=== PATIENT | male | born 1955 | race Caucasian/White ===

== ENCOUNTER 2019-02-22 15:47 | Inpatient (IN) ==
--- NOTE | 2019-02-22 16:39 | EKG Report ---
Test Performed on : 02/22/2019 4:03:23 PM Test Reason : palpitations Blood Pressure : / mmHG Vent. Rate : 140 BPM Atrial Rate : 153 BPM P-R Int : 000 ms QRS Dur : 106 ms QT Int : 340 ms P-R-T Axes : 000 -66 093 degrees QTc Int : 519 ms Atrial fibrillation. with rapid ventricular response. Incomplete right bundle branch block Left anterior fascicular block Minimal voltage criteria for LVH, may be normal variant T wave abnormality, consider lateral ischemia Abnormal ECG No previous ECGs available Unconfirmed Result
[2019-02-22 16:41] LABS: BASO# 0.02 X1000 (0.0-0.2); BASO% 0.3 % (0.0-0.8); EOS# 0.01 X1000 (0.0-0.7); EOS% 0.1 % (0.0-10.0); HEMATOCRIT 46.3 % (42.0-52.0); HEMOGLOBIN 14.9 g/dL (14.0-18.0); IMM GRAN# 0.03 X1000 (0.0-0.04); IMM GRAN% 0.4 % (0.0-0.5); LYMPH# 1.52 X1000 (1.2-3.4); LYMPH% 22.1 % (20.5-51.1); MCH 30.2 PG (27-31); MCHC 32.2 g/dL (33-37); MCV 93.7 FL (81-99); MONO# 0.78 X1000 (0.11-0.59); MONO% 11.4 % (1.7-9.3); MPV 12.6 FL (7.4-10.4); NEUT# 4.51 X1000 (1.4-6.5); NEUT% 65.7 % (42.2-75.2); PLT 106 X1000 (130-400); RBC 4.94 XMIL (4.7-6.1); RDW 13.8 % (11.5-14.5); WBC 6.87 X1000 (4.8-10.8)
[2019-02-22 16:50] LABS: INR 1.11; PROTIME 14.9 Seconds (11.0-16.0)
[2019-02-22 16:51] LABS: PTT 27.1 Seconds (22.3-41.8)
--- NOTE | 2019-02-22 16:56 | Diag Imaging Result Doc PS360 ---
EXAM: CHEST-2 VIEWS HISTORY: shortness of breath TECHNIQUE: Chest two views COMPARISON: None. FINDINGS: The lungs are well expanded. The heart is enlarged. The vessels are not distended. There are no infiltrates. No pleural effusions. There are multiple old rib fractures. IMPRESSION: Mild cardiomegaly Electronically signed by Akil Lees 02/22/2019 4:54 PM
[2019-02-22 17:10] LABS: ESTIMATED GFR > 60
[2019-02-22 17:12] LABS: ALBUMIN 3.4 g/dL (3.5-5.0); ALKALINE PHOSPHATASE 108 U/L (32-122); BUN 12 mg/dL (8-22); CALCIUM 8.5 mg/dL (8.8-10.2); CK PROFILE 117 U/L (24-204); COSMO 284; CREATININE 0.7 mg/dL (0.7-1.2); GOT 57 U/L (10-34); GPT 62 U/L (10-44); TOTAL PROTEIN 6.8 g/dL (6.3-8.3)
[2019-02-22 17:13] LABS: AGAP 12; CHLORIDE 97 mmol/L (98-107); POTASSIUM 4.8 mmol/L (3.5-5.1); SODIUM 133 mmol/L (136-145); TCO2 25 mmol/L (25-35)
[2019-02-22 17:15] LABS: GLUCOSE 427 mg/dL (70-104)
[2019-02-22 17:43] LABS: BE -7.7 mmoll (-2.0-2.0); BLOOD TYPE VENOUS; HCO3-(ACT) 18.3 mmoll (22-27); PO2(98.6) 51 mmHg (30-55); SAMPLE BLOOD; SAO2 83.4 % (40.0-85.0)
[2019-02-22 17:46] LABS: pH(98.6) 7.14 (7.32-7.43)
[2019-02-22 17:47] LABS: PCO2(98.6) 67 mmHg (40-60)
[2019-02-22] MEDS ORDERED: HUMULIN R SUBQ ONE (18:31)
[2019-02-22] MEDS ORDERED: LASIX IV ONE (18:38)
[2019-02-22] MEDS ORDERED: LANOXIN IV ONE (18:38)
[2019-02-22] MEDS ORDERED: HUMULIN R (PARKWAY) ONE (18:46)
--- NOTE | 2019-02-22 19:01 | PROVIDER DOCUMENTATION ---
This chart was entered by Geeta Jean Baptiste Scribe, acting as scribe for Jasiel Ford MD. HPI-Cardiac General - General Chief Complaint: Shortness of Breath Stated Complaint: AFIB / EDEMA Time Seen by Provider: 02/22/19 16:17 Source: patient Allergies/Adverse Reactions: Patient Allergies Allergy/AdvReac Type Severity Reaction Status Date / Time Penicillins Allergy Unknown Verified 02/22/19 15:58 Sulfa (Sulfonamide Allergy Unknown Verified 02/22/19 15:58 Antibiotics) Home Medications: Home Medication List Medication Instructions Recorded Confirmed Last Taken Type Ubidecarenone [Ultra Coq10] 1 tab PO DAILY 02/22/19 02/22/19 Unknown History - History of Present Illness-Cardiac Nature of Presenting Problem: 63yom presents to ED cc swelling of both legs from groin to feet, SOB, fatigue especially with walking, increased thirst and hesitancy in urinating for last 2 weeks. Pt denies chest pain or fever. Pt has hx of Afib. Pt is in no apparent distress upon exam. Location: reports: other (both legs) Quality of Pain: reports: aching Severity in ED: mild Onset/Duration: last week Timing: still present Context/Activities at Onset: reports: moderate activity Modifying Factors: worse with: movement Palpitation Quality: irregular History of arrythmia: reports: A-Fib Nitro Today/Relief: reports: no nitro taken today Aspirin Treatment Today: reports: no aspirin today Similar Symptoms Previously?: No Recently Seen Here or By Another Healthcare Provider: No Review of Systems - Adult - REVIEW OF SYSTEMS - ADULT Constitutional: reports: see HPI, fatique. denies: chills, fever Eyes: reports: no symptoms reported Ears, Nose, Mouth & Throat: reports: no symptoms reported Cardiovascular: reports: see HPI, irregular heart rate. denies: chest pain Respiratory: reports: see HPI, shortness of breath. denies: cough Gastrointestinal: reports: no symptoms reported Genitourinary: reports: see HPI, hesitency Musculoskeletal: reports: no symptoms reported Integumentary: reports: see HPI, other (swelling both legs) Neurological: reports: no symptoms reported Psychiatric: reports: no symptoms reported Endocrine: reports: see HPI, increased thirst Hematologic/Lymphatic: reports: no symptoms reported Allergic/Immunologic: reports: no symptoms reported All Other Systems: Reviewed and Negative Past History - Adult - PAST MEDICAL HISTORY-ADULT Review of Records: reports: Nursing Assessment Review, Medications Reviewed, Social history reviewed & non-contributory. Major Childhood Illnesses: reports: denies history Cardiovascular: reports: denies history Respiratory: reports: denies history Gastrointestinal: reports: denies history Obstetrical/Gynecological: reports: denies history Genitourinary: reports: denies history Musculoskeletal: reports: denies history Neurological: reports: denies history Endocrine/Immune: reports: denies history Other Conditions: reports: denies history - IMMUNIZATION STATUS Childhood Immunizations: See Nurse Assessment Flu Vaccine: See Nurse Assessment - FAMILY HISTORY Family History: reviewed, not pertinent Physical Exam-General - PHYSICAL EXAM-ADULT Initial Vital Signs Reviewed: Yes - CONSTITUTIONAL General Appearance: appears well, alert, no apparent distress. negative: anxious, combative - EYES Eyes: PERRL/EOMI, pink conjunctivae. negative: photophobia - HEAD, EARS, NOSE, MOUTH & THROAT HENMT: normocephalic/atraumatic, moist mucous membranes. negative: angioedema - NECK Neck: non-tender, full range of motion, supple, normal inspection. negative: C- spine tenderness - RESPIRATORY Respiratory: chest non-tender, lungs clear, normal breath sounds. negative: whe ezing - CARDIOVASCULAR Cardiovascular: normal peripheral pulses, tachycardia. negative: regular rate, rhythm, bradycardia - GASTROINTESTINAL (ABDOMEN) Abdominal Exam: normal bowel sounds, non tender, soft. negative: rebound - MUSCULOSKELETAL Extremity: pedal edema (bilateral), swelling (both legs from groin to feet). negative: deformity - SKIN Integumentary: normal color. 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 negative: facial droop, focal weakness, motor weakness, sensory deficit - PSYCHIATRIC Psych/Mental Status: normal mood/affect, oriented x 3. negative: anxious, disheveled - HEART Score HEART Score: History: Slightly Suspicious HEART Score: ECG: Non-Specific Repolarization Disturbance/LBBB/PM HEART Score: Age: 45-65 Years HEART Score: Risk Factors for Atherosclerotic Disease: 1 or 2 Risk Factors HEART Score: Troponin: < or = Normal Limit Total HEART Score:: 3 Progress - PLAN OF CARE/RESULTS Progress/Plan/Lab Results: Vital Signs - 8 hr 02/22/19 15:52 02/22/19 17:04 02/22/19 18:54 Temperature 98.5 F Pulse Rate 129 H 138 H 136 H Respiratory Rate 20 20 Blood Pressure 117/83 109/83 O2 Sat by Pulse Oximetry 98 98 Laboratory Results - last 24 hr 02/22/19 02/22/19 02/22/19 16:18 16:18 16:18 WBC 6.87 RBC 4.94 Hgb 14.9 Hct 46.3 MCV 93.7 MCH 30.2 MCHC 32.2 L RDW Std Deviation 13.8 Plt Count 106 L MPV 12.6 H Immature Gran % (Auto) 0.4 Neut % (Auto) 65.7 Lymph % (Auto) 22.1 [place] % (Auto) 11.4 H Eos % (Auto) 0.1 Baso % (Auto) 0.3 Immature Gran # (Auto) 0.03 Neut # (Auto) 4.51 Lymph # (Auto) 1.52 [place] # (Auto) 0.78 H Eos # (Auto) 0.01 Baso # (Auto) 0.02 PT INR PTT (Actin FS) Specimen Type VBG pH VBG pCO2 VBG pO2 VBG HCO3 VBG O2 Saturation VBG Base Excess Sodium 133 L Potassium 4.8 Chloride 97 L Carbon Dioxide 25 Anion Gap 12 BUN 12 Creatinine 0.7 Estimated GFR/1.73 m2 > 60 BUN/Creatinine Ratio 17 Glucose 427 H* Calculated Osmolality 284 Calcium 8.5 L Total Bilirubin 1.30 H AST 57 H ALT 62 H Alkaline Phosphatase 108 Creatine Kinase 117 Troponin T Wob-[id number]-Tauqedflchq Pept 4244 H Total Protein 6.8 Albumin 3.4 L Globulin 3.0 Albumin/Globulin Ratio 1.0 02/22/19 02/22/19 02/22/19 16:18 16:18 17:25 WBC RBC Hgb Hct MCV MCH MCHC RDW Std Deviation Plt Count MPV Immature Gran % (Auto) Neut % (Auto) Lymph % (Auto) [place] % (Auto) Eos % (Auto) Baso % (Auto) Immature Gran # (Auto) Neut # (Auto) Lymph # (Auto) [place] # (Auto) Eos # (Auto) Baso # (Auto) PT 14.9 INR 1.11 PTT (Actin FS) 27.1 Specimen Type VENOUS VBG pH 7.14 L* VBG pCO2 67 H* VBG pO2 51 VBG HCO3 18.3 L VBG O2 Saturation 83.4 VBG Base Excess -7.7 L Sodium Potassium Chloride Carbon Dioxide Anion Gap BUN Creatinine Estimated GFR/1.73 m2 BUN/Creatinine Ratio Glucose Calculated Osmolality Calcium Total Bilirubin AST ALT Alkaline Phosphatase Creatine Kinase Troponin T < 0.010 Esh-[id number]-Oogawbqvdpn Pept Total Protein Albumin Globulin Albumin/Globulin Ratio Orders Category Date Time Status Cardiac Monitoring DIRECTED Care 02/22/19 16:01 Active Oxygen Therapy- ED Nursing DIRECTED Care 02/22/19 16:01 Active Saline Loc NOW Care 02/22/19 16:01 Active CHEST-2 VIEWS [RAD] Stat Exams 02/22/19 16:01 Completed CBC WITH ELECTRONIC DIFF [HEME] Stat Lab 02/22/19 16:18 Completed CK PROFILE [SP CHEM] Stat Lab 02/22/19 16:18 Completed COMPREHENSIVE METABOLIC PANEL [CHEM] Stat Lab 02/22/19 16:18 Completed PRO B-NATRIURETIC PEPTIDE Stat Lab 02/22/19 16:18 Completed PROTIME WITH INR [COAG] Stat Lab 02/22/19 16:18 Completed PTT [COAG] Stat Lab 02/22/19 16:18 Completed TROPONIN T Stat Lab 02/22/19 16:[address] BLOOD G[address] [RESP] Routine Lab 02/22/19 17:25 Completed Digoxin [Lanoxin] Med 02/22/19 18:38 Discontinued 125 microgm IV NOW ONE Furosemide [Lasix] Med 02/22/19 18:38 Discontinued 40 mg IV NOW ONE Insulin Human Regular ([place] [Humulin R ([place])] Med 02/22/19 18:46 Discontinued 3 units .ROUTE .STK-MED ONE Insulin Human Regular [Humulin R] Med 02/22/19 18:31 Discontinued 3 unit SUBQ NOW ONE CP/SOB/Palp >45 yrs of Age Stat Oth 02/22/19 16:01 Ordered EKG [EKG] Stat Ther 02/22/19 15:59 Draft Transfer/Admit Order [TRANSFER] Routine Transfer 02/22/19 18:48 Ordered Result Diagrams: 02/22/19 16:18 02/22/19 16:18 - REASSESSMENT Reassessment #1 Time Reassessed: 18:29 Status: unchanged (Ph 7.14, BS 427. LIKELY COMPONENT DKA. A FIB AT 125-135/MIN BUT BP 109-122/ AND PT FLUID OVERLOADED WITH CARDIIOMEGALLY AND EDEMA UP TO GENITATLIA) Reassessment #2 Time Reassessed: 18:30 Status: unchanged (PAGING DR PINEDO. DISCUSSED WITH DR FRANKLIN: START DIGOXIN 0.125IV, LASIX IV, TRANSFER TO ICU AT [facility].) - EKG 1 Time of EKG reading by physician:: 16:18 EKG Read and Signed by:: Jasiel Ford EKG Interpretation (*Must complete 3 of following elements*): Abnormal (left anterior fascicular block T wave abnormality consider lateral ischemia) Rate: 140 Rhythm: atrial fibrillation with RVR QRS: RBB (incomplete), LVH WV Interval: normal - XRAY 1 XRAY: Bilateral XRAY Study: Chest Impression: See EMR Report (IMPRESSION: Mild cardiomegaly Electronically signed by Akil Lees 02/22/2019 4:54 PM) Departure - Departure Date of Disposition Decision: 02/22/19 Time of Disposition Decision: 18:40 DIAGNOSIS: Chronic atrial fibrillation with RVR, DKA, type 2, Cardiomegaly, Fluid overload , Hyperglycemia, New onset type 2 diabetes mellitus Disposition: ADMITTED INPATIENT 09 Certified Medical Emergency: Emergent Condition: Stable Additional Freetext Instructions: ED Follow Up Instructions: You have been treated by a care provider in the Emergency Department. These instructions are being provided to you so you can have an understanding of how to care for yourself upon discharge. Upon discharge from the Emergency Department, you are responsible for making arrangements for follow-up care by a physician of your choice. Take all prescribed medications as directed. Return to the Emergency Department immediately for any new or worsening symptoms. You may call the Physician Referral phone number at [phone] to obtain a list of Physicians who are taking new patients. Referrals and Follow-Ups: None,PCP [Primary Care Provider] - - Critical Care Note This patient required my direct & personal management of CC.: Yes Total Time (mins): 44 Critical Care Statement: This patient required my direct personal management to treat or rule out processes, the absence of which, could potentiallly result in sudden, clinically significant life or limb threatening deterioration. Attestation - Physician/ TUAN Attestation Patient care was provided by Advanced Practice Provider:: No The physician spent face to face time with patient:: Yes Advanced Practice Provider documentation review:: Supervising physician onsite and consulted in the evaluation and care of this patient. The physician did have a face to face encounter with the patient. This chart was documented by the indicated scribe, (Geeta Jean Baptiste, Franci) and accurately reflects the services I performed and decisions made by me, Jasiel Ford MD, as attested by the provider's signature.
[2019-02-22] MEDS ORDERED: CARDIZEM IV ONE ×2 (19:35→20:24)
[2019-02-22 22:40] LABS: BE 4.7 mmoll (-3.0-3.0); BLOOD TYPE ARTERIAL; HCO3-(ACT) 28.5 mmoll (20.0-26.0); METHB 1.5 % (0.0-1.5); O2(CT) 20.3 mL/dL (15.0-23.0); O2HB 94.1 % (95.0-99.0); PCO2(98.6) 29 mmHg (35-45); PO2(98.6) 82 mmHg (60-100); SAMPLE BLOOD; SAO2 98.2 % (95.0-100.0); THB 15.3 g/dL (11.5-17.4)
[2019-02-22 22:41] LABS: ALLEN TEST YES
[2019-02-22 22:42] LABS: MODALITY ROOM AIR; pH(98.6) 7.56 (7.35-7.45)
[2019-02-22 23:20] LABS: HEMOGLOBIN A1C 12.7 % (4.8-6.0)
[2019-02-22 23:30] LABS: AGAP 12; BUN 13 mg/dL (8-22); CALCIUM 8.6 mg/dL (8.8-10.2); CHLORIDE 104 mmol/L (98-107); COSMO 284; CREATININE 0.8 mg/dL (0.7-1.2); ESTIMATED GFR > 60; GLUCOSE 114 mg/dL (70-104); MAGNESIUM 1.7 mg/dL (1.5-2.7); PHOSPHORUS 3.7 mg/dL (2.7-4.5); POTASSIUM 3.6 mmol/L (3.5-5.1); SODIUM 142 mmol/L (136-145); TCO2 26 mmol/L (25-35)
[2019-02-23] MEDS ORDERED: ZOFRAN IV PRN (02:00)
[2019-02-23] MEDS ORDERED: TYLENOL PO PRN (02:07)
[2019-02-23 05:11] LABS: ALLEN TEST YES; BE 3.7 mmoll (-3.0-3.0); BLOOD TYPE ARTERIAL; HCO3-(ACT) 27.7 mmoll (20.0-26.0); METHB 1.1 % (0.0-1.5); MODALITY ROOM AIR; O2HB 93.5 % (95.0-99.0); PCO2(98.6) 34 mmHg (35-45); PO2(98.6) 71 mmHg (60-100); SAMPLE BLOOD; SAO2 97.3 % (95.0-100.0); THB 15.2 g/dL (11.5-17.4)
[2019-02-23 05:26] LABS: BASO# 0.02 X1000 (0.0-0.2); BASO% 0.4 % (0.0-0.8); EOS# 0.07 X1000 (0.0-0.7); EOS% 1.2 % (0.0-10.0); HEMATOCRIT 44.6 % (42.0-52.0); HEMOGLOBIN 15.2 g/dL (14.0-18.0); IMM GRAN# 0.02 X1000 (0.0-0.04); IMM GRAN% 0.4 % (0.0-0.5); LYMPH# 1.99 X1000 (1.2-3.4); LYMPH% 35.3 % (20.5-51.1); MCH 31.4 PG (27-31); MCHC 34.1 g/dL (33-37); MCV 92.1 FL (81-99); MONO# 0.64 X1000 (0.11-0.59); MONO% 11.4 % (1.7-9.3); MPV 12.6 FL (7.4-10.4); NEUT# 2.89 X1000 (1.4-6.5); NEUT% 51.3 % (42.2-75.2); PLT 90 X1000 (130-400); RBC 4.84 XMIL (4.7-6.1); RDW 13.8 % (11.5-14.5); WBC 5.63 X1000 (4.8-10.8)
[2019-02-23 05:45] LABS: AGAP 11; ALB/GLOB RATIO 0.9; ALBUMIN 2.8 g/dL (3.5-5.0); ALKALINE PHOSPHATASE 73 U/L (32-122); BUN 13 mg/dL (8-22); CALCIUM 8.5 mg/dL (8.8-10.2); CHLORIDE 102 mmol/L (98-107); CK PROFILE 65 U/L (24-204); COSMO 282; CREATININE 0.8 mg/dL (0.7-1.2); ESTIMATED GFR > 60; GLUCOSE 142 mg/dL (70-104); GOT 56 U/L (10-34); GPT 52 U/L (10-44); MAGNESIUM 1.6 mg/dL (1.5-2.7); SODIUM 140 mmol/L (136-145); TCO2 27 mmol/L (25-35); TOTAL BILIRUBIN 1.28 mg/dL (0.20-1.00)
[2019-02-23 06:26] LABS: URINE SOURCE CLEAN CATCH
[2019-02-23] MEDS: HUMULIN R SUBQ SCH ×4 (06:28→21:04)
[2019-02-23 06:33] LABS: URINE RBC <10 /HPF (<10); URINE WBC >40 /HPF (<10)
[2019-02-23 06:34] LABS: BILIRUBIN URINE NEGATIVE (NEGATIVE); COLOR YELLOW; GLUCOSE URINE NEGATIVE (NEGATIVE); KETONE URINE NEGATIVE (NEGATIVE); TURBIDITY URINE HAZY (CLEAR); UR EPITHELIAL CELLS <10 /HPF (<10); URINE BACTERIA 2+ /HPF
[2019-02-23 06:35] LABS: BLOOD URINE TRACE (NEGATIVE); LEUKOCYTES URINE LARGE (NEGATIVE); NITRITE URINE NEGATIVE (NEGATIVE); PROTEIN URINE 20 mg/dL (NEGATIVE); SP GRAVITY URINE 1.015; UROBILINOGEN URINE NORMAL (NORMAL)
--- NOTE | 2019-02-23 06:37 | HISTORY AND PHYSICAL ---
PRIMARY CARE PROVIDER: The patient does not have a primary care provider. DATE AND TIME: 02/23/2019 at 0015. CHIEF COMPLAINT: Bilateral lower extremity swelling. HISTORY OF PRESENT ILLNESS: Mr. Gupta is a 63-year-old male who reportedly has a past medical history of atrial fibrillation and heart failure. The patient states that he was diagnosed with this when he lived in [place]. This was approximately 2 years ago. He states he was discharged with medications. He took them for approximately a year, though for the last year he has not taken any prescribed medications or seen a physician. The patient states he takes over- the-counter Co Q10 and regularly uses apple cider vinegar. He does report daily alcohol use of a minimum of 1 beer daily, though frequently drinks up to 4 to 5 beers a day. He denies any history of having withdrawal symptoms in the past of feeling anxious, agitated or shaky when he goes for periods without alcohol. The patient reports that he has a job where he stands on his feet a lot, and does frequently have bilateral lower extremity swelling that worsens throughout the day and gets better when he lays down to sleep at night. He states he regularly does elevate his feet up as well to help with this. He states for the past 3 weeks that he has had worsening bilateral lower extremity edema that has extended all the way up his legs into his thighs. He also has scrotal and penile swelling and edema noted too. His legs seem to be equally swollen though his left foot is slightly more swollen than the right though they are not erythematous. They are not warm or tender to the touch. The patient had negative Homans' sign on both bilateral lower extremities. He did not have any localized tenderness in the deep venous system on either leg. The patient denies any headache, dizziness or feeling lightheaded. He denies any chest pain, shortness of breath, or cough. He denies any abdominal pain, nausea, vomiting, or diarrhea. He denies any fever, body aches, or chills. He also denies any palpitations. He denies any urinary symptoms. He states that he is not having trouble urinating. He does not feel like he has urinary retention either. He reports no pain or burning with urination though he did express that he would like to have a circumcision performed. The patient did present to the ER at [facility] for evaluation of his bilateral lower extremity swelling. He was noted to be hyperglycemic with a serum glucose of 427. His proBNP was elevated at 4244 though cardiac enzymes were negative. They did initially perform a venous blood gas which showed a pH of 7.14. Given this and his hyperglycemia, the patient was initially thought to be in DKA though upon repeating an arterial blood gas, the patient's pH was 7.56, pCO2 29, PO2 was 82, HC03 was 28.5, with a base excess of 4.7, and O2 saturation of 98.2. These were drawn on room air. His repeat chemistries revealed that he did have a positive response to the insulin that was given with a glucose of 114. All of his electrolytes were within normal limits. His serum bicarb was 26. His anion gap was 12. The patient was noted to be in atrial fibrillation. He did receive a dose of digoxin and Cardizem in the ER at [place]. Since that time, his heart rate is maintained in the 90s to low 100s. He is asymptomatic at this time. Blood pressure is within normal limits as well. The patient has been admitted to the ICU at [facility] for further treatment and evaluation. REVIEW OF SYSTEMS: A 14 point review of systems was conducted with the patient, and all were negative except for pertinent positives mentioned above in HPI. PAST MEDICAL HISTORY: 1. Atrial fibrillation. 2. Congestive heart failure. 3. History of right femur fracture. 4. Alcohol dependency. PAST SURGICAL HISTORY: Right upper leg surgery for repair of his femur fracture. 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 He is a former smoker. He did smoke a half a pack of cigarettes since he was a teenager though quit smoking 8 months ago. He does report at least a minimum of 1 beer a day. Alcohol use: He does frequently drink up to 4 to 5 beers a day. He has done this for several years. FAMILY HISTORY: Positive for his mother having a history of what sounds to be a DVT after surgery which unfortunately did have a subsequent PE, and did pass away secondary to this. His father is still living. He is 94 though does have a history of alcohol abuse. ALLERGIES: Patient has allergies to penicillin and sulfa. HOME MEDICATIONS: Ultra Co Q10 1 tablet p.o. daily. DIAGNOSTIC DATA/LABORATORY RESULTS: White blood cell count of 6870, hemoglobin 14.9, hematocrit 46.3, and platelet count is 106,000. PT 14.9, INR 1.11, PTT is 27.1. Sodium 133, potassium 4.8, chloride 97, serum bicarb 25, anion gap 12, BUN 12, creatinine 0.7 and GFR greater than 60. Glucose is 427. Hemoglobin A1c was 12.7. Calcium 8.5. Total bilirubin is 1.3. AST 57, ALT 62, and alkaline phosphatase is 108, and CK is 117. Troponin is less than 0.01. ProBNP is 4244. As previously mentioned upon the patient's repeat chemistries, electrolytes were within normal limits except for his calcium was slightly low at 8.6. His serum bicarb was 26, anion gap was 12. Repeat pH revealed that he was actually alkalotic, not acidotic. The patient was deemed to not be in DKA. EKG showed atrial fibrillation with a rapid ventricular response at a rate of 140 with a QTc of 519. Since that time, the patient has been given digoxin and Cardizem, and his rate is now maintaining in the 90s. Chest x-ray showed mild cardiomegaly though the lungs were well expanded. The heart was slightly enlarged. The vessels were not distended. There was no infiltrates or pleural effusions noted. PHYSICAL EXAMINATION: VITAL SIGNS: Temperature 97.7 degrees, heart rate 106, respirations 18, blood pressure 98/51 with a MAP of 58. His blood pressure has since improved as well. Oxygen saturation is 96% on room air. GENERAL: Mr. Gupta is a very pleasant 63-year-old male who was resting in the inpatient stretcher. He was in no acute distress. He was awake, alert and able to answer questions appropriately. HEENT: Head is atraumatic, normocephalic. Pupils are equal, round, and reactive to light, and were 3 mm bilaterally and brisk. Oral mucosa was moist. Oropharynx was clear. NECK: Supple. Trachea midline. No JVD noted upon examination. CARDIOVASCULAR: Patient has S1-S2 present. No murmurs. No murmurs, gallops, or rubs appreciated. Regular rate and rhythm. PULMONARY: Patient has symmetrical chest expansion bilaterally. Lung sounds are clear to auscultation in bilateral full suggs. ABDOMEN: Soft, nontender, and nondistended. Bowel sounds present in all 4 quadrants, and were normoactive. EXTREMITIES: No cyanosis noted. The patient does have edema noted from bilateral feet extending all the way up to his groin area which extends even into his scrotal and penile area. This is approximately 2+ pitting edema. The patient's legs are equally swollen except for his left foot is slightly more swollen than his right. There is no erythema warmth, or tenderness present. He had a negative Homans' sign. There was no localized tenderness in the deep venous system upon palpation. Pulse, motor and sensory is intact in all extremities. Radial and pedal pulses are 2+ bilaterally. INTEGUMENTARY: The patient's skin is pink, warm, and dry. GENITOURINARY: The patient does have some slight erythema and edema noted to his scrotal and penile area. The patient is uncircumcised. His foreskin is pulled forward though he is unable to retract this back. ICU nurse, Shira CASTILLO, was present at bedside with me during the genitourinary portion of his examination. INTEGUMENTARY: The patient's skin is warm and dry. NEUROLOGICAL: Patient is alert and oriented to person, place, time, and situation. He is able to move all extremities. There are no focal neurological deficits noted. ASSESSMENT AND PLAN: 1. Bilateral lower extremity edema. This is of uncertain etiology at this time. The patient does have a history of heart failure. We are evaluating him for this as well as he does have a history of alcohol abuse. His liver enzymes were elevated. He does have thrombocytopenia. The patient is not reporting any problems urinating at this time though given his scrotal and penile swelling, we are going to obtain a urology consult as well. Since receiving a dose of Lasix, the patient's swelling has slightly improved. We will continue to follow. 2. Possible heart failure. The patient states he does have a history of this as well as atrial fibrillation, though he has not taken medications for this for over a year. Though he does have bilateral lower extremity edema and some mild cardiomegaly noted on his chest x-ray, he is not reporting any shortness of breath or chest pain at this time. We will continue with the series of cardiac enzymes. We will repeat EKG in the morning. We also ordered an echocardiogram. He did receive 1 dose of 40 mg of Lasix IV, and since that time has had urine output of 1375 mL. We have placed a consult with Cardiology, and we will await their evaluation and further recommendations for management. 3. Penile and scrotal swelling and erythema. For the evaluation of this, we have placed a consult with Urology with Dr. Escamilla. We will await his evaluation and further recommendations for management. 4. History of alcohol dependency/abuse. The patient reports that he does drink daily minimum of beer, and up to 4 to 5 beers on a frequent basis. He has done this for several years. The patient is having some edema. He does have elevated liver function tests and does have thrombocytopenia. We are going to go ahead and order hepatitis profile, and do an abdominal ultrasound. We will closely monitor him for any signs of withdrawal. 5. Atrial fibrillation. The patient does report he has a history of this though has not taken medicine as previously mentioned in over a year. He is not reporting any chest pain or palpitations. He did come in with EKG that was noted to be in atrial fibrillation with RVR at a rate of 140. He received 125 mcg of digoxin, and a dose of 5 mg of Cardizem IV. Since that time, his rate has been controlled in the 90s. We have placed a consult with Cardiology. We will await their evaluation, and further recommendations for management. 6. New onset diabetes mellitus. The patient did present with a glucose of 427. He has a hemoglobin of 12.7. He has been placed on regular insulin per low-dose sliding scale. We will do pattern fingerstick blood sugars. The patient will be on a diabetic and heart healthy diet though he is NPO at this time for a lipid profile and abdominal ultrasound this morning. 7. Deep vein thrombosis prophylaxis will be provided with sequential compression devices. The patient has been placed in ICU for close monitoring. He will have vital signs per ICU protocol. We will do strict intake and output, incentive spirometry. He will perform daily weigh checks. We will perform a CBC, CMP, magnesium, TSH, lipid profile, urinalysis, and a series of cardiac enzymes in the morning. Further orders and recommendations pending hospital course, diagnostic studies, and physician evaluation. Dictated by NATALIA Marshall for Stefan Montgomery MD I have performed a face to face diagnostic evaluation. Labs/ Xrays- reviewed. Exam- chest - rales, Ext- +2 edema. A/P- Bilateral LE edema, suspected CHF- Admit, diuresis, Echo. Dr. Montgomery cc: Stefan Montgomery MD [facility]
--- NOTE | 2019-02-23 07:31 | EKG Report ---
Test Performed on : 02/23/2019 06:55:48 AM Test Reason : CHF,A-Fib Blood Pressure : / mmHG Vent. Rate : 094 BPM Atrial Rate : 300 BPM P-R Int : 000 ms QRS Dur : 106 ms QT Int : 402 ms P-R-T Axes : 000 -68 269 degrees QTc Int : 502 ms Atrial fibrillation. with premature ventricular or aberrantly conducted complexes. Incomplete right bundle branch block Left anterior fascicular block T wave abnormality, consider lateral ischemia Prolonged QT Abnormal ECG When compared with ECG of 22-FEB-2019 16:03, (Unconfirmed) Vent. rate has decreased BY 46 BPM Nonspecific T wave abnormality now evident in Inferior leads Confirmed by Porsche Mora MD ([id number]) on 02/23/2019 12:11:18 PM
[2019-02-23] MEDS: LOTRISONE CREAM TOP SCH ×2 (08:23→21:04)
--- NOTE | 2019-02-23 08:33 | CONSULTATION ---
DATE OF CONSULTATION: 02/23/2019 CHIEF COMPLAINT: Penile swelling. HISTORY OF PRESENT ILLNESS: Mr. Gupta is a 63-year-old male with past medical history of atrial fibrillation and heart failure who presents to the emergency room complaining of lower extremity swelling and penile swelling. The patient states the swelling has been present off and on for the past several months. He feels like it is getting worse and he felt like there was some redness and cystic changes to his penis. The patient was told previously that he had heart failure and was taking medications for about a year but then ultimately stopped. The patient states that he is having some burning with urination and feels that his urine sprays. He states that there was a tight band of the penis that leads to pain with intercourse which he feels is getting worse. He denies hematuria, urgency, or frequency. He does get up at night several times to urinate and denies taking any medications for this. While in the emergency room, the patient was evaluated for his lower extremity edema and was found to be hyperglycemic with a glucose of 427, hemoglobin A1c of 12, with a proBNP at 4244, as well as a blood gas pH 7.14. This was repeated and was 7.56 with a pCO2 of 29 and a PO2 of 82. The patient was given some Lasix, which helped with the lower extremity swelling. The patient continued to describe some pain in the penis, especially when he urinates and he feels that his urine stream sprays. PAST MEDICAL HISTORY: 1. Atrial fibrillation. 2. Congestive heart failure. 3. History of right femur fracture. 4. Alcohol dependence. 5. Newly diagnosed diabetes mellitus PAST SURGICAL HISTORY: Right upper leg surgery at age 15. ALLERGIES: Penicillin and sulfa. HOME MEDICATION: Ultra CoQ-10 1 tablet daily. FAMILY HISTORY: Denies family history of malignancy. SOCIAL HISTORY: Positive for alcohol dependence and tobacco use. Denies current illicit drugs. REVIEW OF SYSTEMS: Twelve-point review of systems performed. All pertinent positives and negatives in HPI. PHYSICAL EXAMINATION: Vital Signs: Heart rate 105, blood pressure 122/73, oxygen saturation 94% on room air, temperature 98.0 degrees, General: No acute distress. Resting comfortably in bed, alert and oriented x3. Respiratory: Good respiratory effort without audible wheezing or rales. HEENT: Normocephalic, atraumatic. Pupils equal, round, reactive to light. Mucous membranes moist with good dentition. Cardiovascular: Irregular rhythm with evidence of low-grade tachycardia. No evidence of lower extremity edema. Abdomen: Soft, nontender, nondistended. No palpable masses or hepatosplenomegaly. : No suprapubic tenderness. No suprapubic swelling. No palpable inguinal hernias. Mild bilateral scrotal edema. Bilateral testicles palpated without nodules or lesions. Epididymis are palpated with no obvious cysts. The patient is uncircumcised with penile edema. There is some increased edema present of the foreskin. I was able to retract the foreskin with a moderate tightness to the phimotic ring. I was able to retract it to the glans, which was appeared to be normal with a normal meatus. There was slight erythema present of the foreskin, but no other lesions were seen. JENNIFER: Showed 40 to 50 gram prostate without asymmetry or nodularity. No palpable rectal masses. Neurologic: Gross motor and sensory intact. Musculoskeletal: Moving all extremities. Skin: No obvious skin lesions or rashes. LABS: White blood cell count 5.6, hemoglobin 15.2, hematocrit 44.6, platelets 90,000. Sodium 140, potassium 4.0, chloride 102, bicarb 27, BUN 13, creatinine 0.6, glucose 142, total bilirubin 128, AST 56, ALT 52. ProBNP 4244. Urinalysis shows trace blood, large amount of leukocytes and white blood cells with 2+ bacteria. ASSESSMENT/PLAN: Mr. Gupta is a 63-year-old who presents in consultation regarding penile edema. The patient had admission due to his lower extremity edema and penile edema. He states this has been present off and on for for the past several months. On exam, patient does have some edematous changes of the foreskin as well as some erythematous changes to the skin itself. This appears to be possible balanitis. The patient was admitted for CHF exacerbation, which I think that the patient is having. The patient was relatively healthy other than atrial fibrillation, CHF, and alcohol dependence prior to this admission. Patient was found to have an elevated blood sugar and was tentatively diagnosed with diabetes and liver dysfunction. Recommended application of clotrimazole and betamethasone cream to the penis to help with possible balanitis. The patient is interested in undergoing circumcision and I think it is reasonable in the future. We will plan to follow up outpatient to consider a circumcision. We will hold off on starting Flomax as he is having voiding discomfort with nocturia and frequent urination throughout the day. I think the patient likely has BPH as his prostate is enlarged on exam today. If his blood pressures remained stable, after diuresis with Lasix, we could consider starting Flomax prior to discharged. I recommended he to continue to apply cream to the foreskin b.i.d. for at least 2 weeks and then we will re-evaluate. We will continue to monitor from a urologic standpoint. Please call with questions or concerns. cc: Marvin Escamilla MD MTDD
[2019-02-23] MEDS: ROCEPHIN 1 GM in NS 50 ML IV SCH (08:41)
[2019-02-23] MEDS: CARDIZEM PO SCH ×2 (08:41→13:42)
[2019-02-23] MEDS: LASIX IV SCH ×2 (08:42→21:04)
--- NOTE | 2019-02-23 13:11 | ECHO REPORT ---
ORDER DATE: 02/23/2019 INTERPRETING PHYSICIAN: Boubacar Willard MD. ECHOCARDIOGRAPHIC MEASUREMENTS: 1. Interventricular septum 1.3. 2. Left ventricular posterior wall 0.9. 3. Diastolic diameter 7.1. 4. Left atrium 4.7. 5. Aorta 3.7. FINDINGS: 1. Aortic valve leaflets were trileaflet, mildly sclerosed, opening normally. Pulmonic valve was normal. Mitral valve was normal. Tricuspid valve was normal. There is biatrial enlargement, severe. 2. Dilated right ventricle with reduced right ventricular systolic function. 3. There is mild tricuspid regurgitation. Peak velocity across the tricuspid valve was 2.5 m/sec. Pulmonary artery systolic pressure of 35 to 40 mmHg. There is moderate mitral regurgitation. 4. Atrial fibrillation is noted. Peak velocity across the aortic valve less than 2 m/sec. There is no aortic stenosis or regurgitation. 5. Left ventricle was severely dilated with severely reduced systolic function. Estimated ejection fraction of 15%. 6. There is no pericardial effusion or obvious intracardiac mass or thrombus seen. cc: Boubacar Willard MD
--- NOTE | 2019-02-23 13:33 | Diag Imaging Result Doc PS360 ---
EXAM: US ABDOMEN-COMPLETE 02/23/2019 HISTORY: Elevated LFTs,Hx of Alcohol Abuse TECHNIQUE: Abdominal ultrasound COMMENT: There is a right pleural effusion. The liver is normal in appearance. There is antegrade flow in the portal vein. There is no evidence of biliary dilatation, the common bile duct measuring less than 4 mm. The gallbladder is clear and nontender. There is a small amount of para cholecystic fluid. The visualized portions of the pancreatic head are normal in appearance. There is ascites with fluid in the Morison's pouch region. There is also some fluid between the spleen and the left kidney. The kidneys are not hydronephrotic however there is hyperechogenicity of the renal parenchyma which may be indicative of medical renal disease. The spleen is not enlarged. There is a 1.4 cm cyst in the upper pole of the left kidney and a 2.3 cm cyst in the lower pole. There is a left pleural effusion. IMPRESSION: Bilateral pleural effusions and ascites. Medical renal disease. Electronically signed by Flaco Perez 02/23/2019 1:31 PM
--- NOTE | 2019-02-23 14:34 | PROGRESS NOTE ---
DATE: 02/23/2019 Patient with worsening lower extremity edema, possible acute on chronic congestive heart failure, atrial fibrillation with rapid ventricular response. Rate now well controlled and appears to have actually converted back to normal sinus rhythm. Also a new diagnosis of diabetes. Reasonable sugar control with fairly minimal sliding scale. Also with elevated bilirubin and LFTs of uncertain etiology. Abdominal ultrasound and hepatitis panel pending. Cardiology on board. Echocardiogram obtained and shows mild to moderate pulmonary hypertension and severely reduced ejection fraction at 15, consistent with chronic systolic congestive heart failure. We will continue diuresis. Continue oral diltiazem. Urinalysis also suggestive of a possible urinary tract infection. We will place on Rocephin for now.
[2019-02-23] MEDS: TOPROL XL PO SCH (16:59)
[2019-02-23] MEDS: COZAAR PO SCH (16:59)
--- NOTE | 2019-02-23 20:31 | CONSULTATION ---
DATE OF CONSULTATION: 02/23/2019 IMPRESSION: 1. Acute on chronic systolic heart failure, biventricular. 2. Atrial fibrillation with elevated heart rate. Duration not clear but patient has had atrial fibrillation dating back as far as 2 years. 3. Severe cardiomyopathy with left ejection fraction 15%. Patient also has moderate mitral regurgitation. He has history of cardiomyopathy in the past felt to be nonischemic after evaluation in [place], [place] approximately 2 years ago. Records pending. 4. Chronic alcohol use. Patient's description of alcohol use is rather vague. 5. Chronic cigarette use. Discontinued 8 months ago. RECOMMENDATIONS: 1. Diurese with intravenous Lasix. 2. Initiate beta-fawad metoprolol. 3. Initiate ARB at a low dose. 4. Anticoagulation appropriate given significant CHADS-VASc score. This was discussed with the patient. 5. Patient advised strongly to abstain from all alcohol use. HISTORY: This 63-year-old, white male with past history of cardiomyopathy, atrial fibrillation, regular alcohol use, previous cigarette use was admitted with progressive swelling, dyspnea, and some scrotal edema over the past 3 weeks. He was found to have evidence of acute on chronic systolic heart failure and has been admitted and started on diuretic therapy. He has had no angina. He relates having atrial fibrillation about 2 years ago as well as a cardiomyopathy. He was evaluated in [place], [place]. He describes what sounds like a nuclear stress study being done which he relates was negative. He was treated with anticoagulation and rate control for a period of time. He has relocated twice since then and apparently lost his insurance. He has not had any cardiovascular medications in some time. 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 He describes some orthopnea as well as progressive dyspnea and peripheral swelling. He is rather vague as to how much alcohol he drinks. PAST MEDICAL HISTORY: 1. Cardiomyopathy/congestive heart failure. 2. Atrial fibrillation. PAST SURGICAL HISTORY: Includes right upper leg surgery secondary to femur fracture. ALLERGIES: He is allergic or intolerant to penicillin, sulfa. MEDICATIONS PRIOR TO ADMISSION: As listed. SOCIAL HISTORY: He is . 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 He has history of chronic cigarette use for about 40 years but quit smoking about 8 months ago. He drinks alcohol on a regular basis but is rather vague as to how much. FAMILY HISTORY: Negative for premature coronary disease. REVIEW OF SYSTEMS: Pulmonary: Noteworthy for dyspnea and orthopnea. Gastrointestinal: Noncontributory. Constitutional: Noncontributory. Remainder of review of systems negative/noncontributory with 14 total systems reviewed. PHYSICAL EXAMINATION: General: This is an older white male in no distress. Vital signs: Blood pressure 114/88, heart rate 90 and irregular with ECG monitor showing atrial fibrillation. HEENT: Extraocular movements appear intact. Mucous membranes moist. Neck: Supple. Jugular venous distention is present suggesting elevated central venous pressure of around 12. There are no carotid bruits. Chest: Reveals a few inspiratory crackles in the left base posteriorly as well as a few faint wheezes. Cardiac: Reveals an irregular rate and rhythm without appreciable murmur or gallop. Abdomen: Soft. Bowel sounds are normal. Extremities: Demonstrate mild edema. Neurologic: Exam reveals him to be alert and fully oriented. Speech is fluent. Moves all 4 extremities equally well. Skin: Warm and dry. Psychiatric: Reveals mood to be appropriate. PERTINENT DATA: Twelve lead EKG demonstrates atrial fibrillation with occasional premature ventricular aberrantly conducted complexes, incomplete right bundle branch block. Left anterior fascicular block and nonspecific T-wave abnormality. LABORATORY DATA: Includes a sodium 140, potassium 4.0, chloride 102, carbon dioxide 27, BUN 13 creatinine 0.8, glucose 142. Troponin T less than 0.01. Hemoglobin A1c 12.7, alkaline phosphatase 75, ProBNP 4244, AST 56, ALT 52, albumin 2.8. Echocardiography reports left ventricular ejection fraction of 15%, estimated systolic PA pressure 40 mmHg, moderate mitral regurgitation, and biatrial enlargement. cc: Devon Rabago MD
[2019-02-24] MEDS: HUMULIN R SUBQ SCH ×4 (06:10→21:57)
--- NOTE | 2019-02-24 07:12 | PROGRESS NOTE ---
DATE: 02/24/2019 SUBJECTIVE: No acute events overnight. The patient states that his penile swelling has decreased. They have been applying the Betamethasone-clotrimazole cream twice a day. He denies any pain and feels that he is urinating better. The patient still describes tightness around his penis, but he feels like the swelling is improved. The patient underwent an echocardiogram yesterday which showed an ejection fraction of 15%. OBJECTIVE: Vital signs: Temperature 98.8 degrees, heart rate 71, blood pressure 108/86, oxygen saturation 100% on room air. General: No acute distress. Resting comfortably in bed. Alert and orient x3. Abdomen: Soft, nontender, nondistended. No palpable masses. Genitourinary: No suprapubic tenderness. No CVA tenderness. The patient has uncircumcised phallus with a improvement in penile edema. Minimal erythema is seen of the foreskin. Slightly easier to retract the foreskin today. The patient has normal meatus in orthotopic position. Bilateral testicles palpated without masses or asymmetry. ASSESSMENT AND PLAN: Mr. Gupta is a 63-year-old with atrial fibrillation, congestive heart failure, alcohol dependence who presents in consultation regarding penile edema. The patient had an echocardiogram yesterday which showed an ejection fraction of 15%. The patient's penile edema has improved. He denies any significant pain today. The patient has been voiding without issue. The patient continues to apply betamethasone-clotrimazole cream b.i.d. I think the penile edema is likely related to his congestive heart failure. From a urologic standpoint, discussed with him options to consider a circumcision in the future. I told him that with an EF of 15% that he likely could not be put to sleep for an elective procedure. Recommend continue application of cream b.i.d. We will continue to monitor from a urologic standpoint. Please call with questions or concerns. cc: MD CELSO Guillen
[2019-02-24 08:08] LABS: BASO# 0.02 X1000 (0.0-0.2); BASO% 0.3 % (0.0-0.8); EOS# 0.07 X1000 (0.0-0.7); EOS% 1.1 % (0.0-10.0); HEMATOCRIT 44.7 % (42.0-52.0); HEMOGLOBIN 14.9 g/dL (14.0-18.0); LYMPH# 1.81 X1000 (1.2-3.4); LYMPH% 28.4 % (20.5-51.1); MCHC 33.3 g/dL (33-37); MCV 92.9 FL (81-99); MONO# 0.67 X1000 (0.11-0.59); MONO% 10.5 % (1.7-9.3); MPV 12.6 FL (7.4-10.4); NEUT% 59.7 % (42.2-75.2); PLT 97 X1000 (130-400); RBC 4.81 XMIL (4.7-6.1); RDW 13.7 % (11.5-14.5); WBC 6.37 X1000 (4.8-10.8)
[2019-02-24 08:28] LABS: AGAP 12; ALB/GLOB RATIO 0.9; ALBUMIN 2.6 g/dL (3.5-5.0); ALKALINE PHOSPHATASE 81 U/L (32-122); BUN 20 mg/dL (8-22); CALCIUM 8.2 mg/dL (8.8-10.2); CHLORIDE 98 mmol/L (98-107); COSMO 284; CREATININE 0.7 mg/dL (0.7-1.2); ESTIMATED GFR > 60; GLUCOSE 205 mg/dL (70-104); GOT 65 U/L (10-34); GPT 54 U/L (10-44); POTASSIUM 3.3 mmol/L (3.5-5.1); SODIUM 138 mmol/L (136-145); TCO2 28 mmol/L (25-35); TOTAL BILIRUBIN 1.18 mg/dL (0.20-1.00); TOTAL PROTEIN 5.6 g/dL (6.3-8.3)
[2019-02-24] MEDS: ROCEPHIN 1 GM in NS 50 ML IV SCH (08:46)
[2019-02-24] MEDS: COZAAR PO SCH (08:59)
[2019-02-24] MEDS: TOPROL XL PO SCH (08:59)
[2019-02-24] MEDS: LASIX IV SCH ×2 (08:59→20:14)
[2019-02-24] MEDS ORDERED: POTASSIUM CHLORIDE 20 MEQ/SWI 20 MEQ/100 ML IVPB IV SCH (09:00)
[2019-02-24] MEDS ORDERED: KLOR-CON PO ONE (09:10)
[2019-02-24] MEDS: LOTRISONE CREAM TOP SCH ×2 (10:05→20:15)
[2019-02-24 10:28] LABS: HEPATITIS PROFILE ACUTE SEE COMMENTS
--- NOTE | 2019-02-24 17:28 | PROGRESS NOTE ---
DATE: 02/24/2019 INTERVAL HISTORY: Patient with mildly increased heart rate with atrial fibrillation this morning. At the time of my exam, it was anywhere from 100 to 125, mostly from 100 to 110, but was having intermittent elevations. Cardiology recommendations pending. Lower extremity edema improving fairly quickly with aggressive diuresis. No other acute events overnight. No new complaints. REVIEW OF SYSTEMS: A 12-point review of systems negative except as per interval history. LABS: CBC unremarkable, sodium 138, potassium 3.3, glucose 126 to 307, bilirubin 1.1, AST 65, ALT 54. Troponin negative x3. Urinalysis with large leukocytes, greater than 40 WBCs, no epithelial cells, 2+ bacteria. Hepatitis panel negative. VITAL SIGNS: T-max 98.6 degrees, pulse 104, respirations 18, blood pressure 90/75, and O2 saturation 98% on room air. PHYSICAL EXAMINATION: General: No acute distress. Vital Signs: As above. HEENT and Neck: Normocephalic, atraumatic. Moist mucous membranes. No cervical adenopathy. Cardiovascular: Irregular rate, mildly to moderately tachycardic. No murmurs noted. Pulmonary: Mild bibasilar crackles, otherwise clear to auscultation bilaterally at the time of my exam. Abdomen: Soft, nontender, nondistended. Bowel sounds positive. Extremities: There is 1 to 2+ lower extremity edema bilaterally, much improved from previous. Neurologic: Cranial nerves grossly intact, no focal deficits identified. Psychiatric: Normal mood and affect. Awake, alert, oriented x3. Skin: No new rashes or lesions identified. ASSESSMENT AND PLAN: 1. Atrial fibrillation with rapid ventricular response. On low-dose Cardizem this morning. Rate is still running a little high on a somewhat regular basis. We will see what Cardiology says, but suspect we can either increase diltiazem or change to another agent. We will see what Cardiology says and monitor. 2. Acute on chronic systolic congestive heart failure. The patient reports a history of heart failure. Echocardiogram obtained showing ejection fraction of 15%, as well as mild pulmonary hypertension. Patient has been noncompliant with medications for the past year. Started on beta-faawd and ARB in addition to IV Lasix twice daily. Lower extremity edema appears to be improving rapidly with Lasix. Can likely transition to oral diuretics in the morning. 3. Diabetes, new diagnosis to the patient. A1c of 12.7. Morning sugar pretty good at 126, although it got fairly high later in the day at 307. Suspect he will require insulin at home at some point, but we will discuss with the patient and see if he wants to go straight to insulin or try other options first. 4. Alcohol abuse. Patient drinking at least 1 but frequently 4 to 5 beers a day. Mildly elevated liver function tests. Negative hepatitis panel. Essentially normal liver on ultrasound, so may just be mild alcoholic hepatitis. Bilirubin does appear to be trending down. We will continue to monitor. 5. Hyponatremia, improved with fluids overnight. 6. Hypokalemia, still low today. We will further replete and monitor.
[2019-02-24] MEDS ORDERED: TOPROL XL PO ONE (19:31)
[2019-02-24] MEDS ORDERED: LANOXIN IV ONE (19:32)
[2019-02-24] MEDS ORDERED: THIAMINE 200 MG in NS 50 ML IV ONE (19:35)
[2019-02-24] MEDS ORDERED: LOVENOX 1 MG/KG SUBQ SCH (19:45)
--- NOTE | 2019-02-24 20:04 | CARDIOLOGY PROGRESS NOTE ---
DATE: 02/24/2019 SUBJECTIVE: Patient denies shortness of breath or chest discomfort. Edema is decreasing. His is present and discussion was pursued regarding how much alcohol he drank. She describes him drinking 2 or 3 mixed drinks daily, and then upon returning home, having several beers pretty much every day. OBJECTIVE: Blood pressure 105/75, heart rate 105 and irregular with ECG monitor showing atrial fibrillation. Staff relates that heart rate increases readily when he gets up and walks around. Jugular venous distention is still evident, suggesting elevated central venous pressure.Chest: Fairly clear to auscultation. Cardiac: Irregular rate and rhythm with grade 2 systolic murmur at the left ventricular apex. No gallop can be appreciated. Extremities: Mild edema. LABORATORY DATA: Includes a white blood cell count of 6.37, hematocrit 44.7, hemoglobin 14.9, platelet count 97,000. Sodium 138, potassium 3.3 chloride 98, carbon dioxide 28, BUN 20, creatinine 0.7, glucose 205. Bilirubin 1.2, AST 65, ALT 54. Initial troponin less than 0.01, followup troponin less than 0.01, and followup troponin thereafter less than 0.01. IMPRESSION: 1. Acute on chronic systolic heart failure, biventricular. 2. Severe cardiomyopathy with left ejection fraction of 15%. Etiology is not clear. 3. Atrial fibrillation. Heart rate not yet optimally controlled. 4. Significant chronic alcohol use. This potentially may be the etiology for his underlying cardiomyopathy. 5. Chronic cigarette use. RECOMMENDATIONS: 1. Continue diuresis. 2. Increase metoprolol. 3. Continue ARB. 4. Add digoxin. 5. Anticoagulation. At present, the patient to be on Lovenox 1 mg/kg subcutaneously q.12. 6. Patient strongly advised to abstain from alcohol use. 7. Thiamine supplementation. 8. Supplement potassium. 9. Ultimately, patient would benefit from definitive evaluation with cardiac catheterization/coronary angiography. This potentially could be pursued as an outpatient. However, given patient's social situation, it may be better to keep him here and do it next Wednesday. This was discussed with the patient. cc: Devon Rabago MD
[2019-02-24] MEDS: LOVENOX SUBQ SCH (20:14)
[2019-02-24] MEDS: KLOR-CON PO SCH (20:14)
[2019-02-25] MEDS: HUMULIN R SUBQ SCH ×4 (06:01→20:43)
[2019-02-25 07:51] LABS: AGAP 11; ALB/GLOB RATIO 0.8; ALBUMIN 2.9 g/dL (3.5-5.0); ALKALINE PHOSPHATASE 75 U/L (32-122); BUN 19 mg/dL (8-22); CALCIUM 8.1 mg/dL (8.8-10.2); CHLORIDE 96 mmol/L (98-107); COSMO 281; CREATININE 0.8 mg/dL (0.7-1.2); ESTIMATED GFR > 60; GLUCOSE 114 mg/dL (70-104); GOT 74 U/L (10-34); GPT 61 U/L (10-44); POTASSIUM 4.1 mmol/L (3.5-5.1); SODIUM 139 mmol/L (136-145); TCO2 32 mmol/L (25-35); TOTAL BILIRUBIN 1.19 mg/dL (0.20-1.00); TOTAL PROTEIN 6.4 g/dL (6.3-8.3)
[2019-02-25 07:55] LABS: BASO# 0.03 X1000 (0.0-0.2); BASO% 0.4 % (0.0-0.8); EOS# 0.07 X1000 (0.0-0.7); HEMOGLOBIN 17.5 g/dL (14.0-18.0); IMM GRAN# 0.03 X1000 (0.0-0.04); IMM GRAN% 0.4 % (0.0-0.5); LYMPH# 2.46 X1000 (1.2-3.4); LYMPH% 35.5 % (20.5-51.1); MCH 30.9 PG (27-31); MCHC 33.7 g/dL (33-37); MCV 91.9 FL (81-99); MONO# 0.85 X1000 (0.11-0.59); MONO% 12.3 % (1.7-9.3); MPV 12.2 FL (7.4-10.4); NEUT# 3.48 X1000 (1.4-6.5); NEUT% 50.4 % (42.2-75.2); PLT 110 X1000 (130-400); RBC 5.66 XMIL (4.7-6.1); RDW 13.7 % (11.5-14.5); WBC 6.92 X1000 (4.8-10.8)
--- NOTE | 2019-02-25 08:37 | PROGRESS NOTE ---
DATE: 02/25/2019 SUBJECTIVE: No acute events overnight. The patient's penile swelling has returned to normal. The patient has been applying betamethasone clotrimazole cream twice a day. He denies any pain and feels that he is urinating without issue. He feels like the tightness to the foreskin has continued to improve, and he is pleased that the penile swelling has almost completely resolved. OBJECTIVE: Vital Signs: Temperature 97.7 degrees, heart rate 86, blood pressure 114/86, oxygenation 96% on room air. General: No acute distress. Resting comfortably in the bed. Respiratory: Good respiratory effort without audible wheezing or rales. Abdomen: Soft, nontender, nondistended. No palpable masses or hepatosplenomegaly. : No suprapubic tenderness. No CVA tenderness. The patient has an uncircumcised phallus, with resolution of penile edema. Erythema has resolved. Easy to retract foreskin over the glans. The patient has normal meatus, is orthotopic. Bilateral testicles palpated without masses or nodularity. ASSESSMENT AND PLAN: Mr. Gupta is a 63-year-old with atrial fibrillation, congestive heart failure, alcohol dependence, recently diagnosed diabetes, who presents in consultation for penile edema. The patient has been applying betamethasone clotrimazole cream twice daily and has had improvement in his penile edema. This seems to return nearly back to baseline. The patient has been urinating without issue and seems to be emptying his bladder to completion. The patient had a urine culture sent, which is growing Klebsiella, and currently is on Rocephin for this. The patient denies any dysuria or frequency of urination. From a urologic standpoint, the patient seems to be doing better. He is not having any issues with emptying his bladder and his penile edema has returned to normal. We will continue to follow. Please call with questions or concerns. cc: Marvin Escamilla MD [facility] HOSPITALDarcy
[2019-02-25] MEDS ORDERED: LASIX PO ONE (09:23)
[2019-02-25] MEDS: TOPROL XL PO SCH (10:23)
[2019-02-25] MEDS: OMNICEF PO SCH ×2 (10:24→20:43)
[2019-02-25] MEDS: KLOR-CON PO SCH ×2 (10:24→20:43)
[2019-02-25] MEDS: COZAAR PO SCH (10:24)
[2019-02-25] MEDS: LOVENOX SUBQ SCH ×2 (10:24→20:43)
[2019-02-25] MEDS: LANOXIN PO SCH (10:24)
[2019-02-25] MEDS: LOTRISONE CREAM TOP SCH ×2 (10:25→20:44)
[2019-02-25] MEDS: LASIX IV SCH (10:33)
--- NOTE | 2019-02-25 15:39 | PROGRESS NOTE ---
DATE: 02/25/2019 INTERVAL HISTORY: Patient's edema essentially resolved at this point. Complains that the Lasix has "turned him into a skeleton." No respiratory difficulty at this point. No new complaints. No acute events overnight. REVIEW OF SYSTEMS: Twelve point review of systems negative except for Interval History. LABORATORIES: WBC 6.9, hemoglobin 17.5, hematocrit 52.0, platelets 110,000. Sodium 139, potassium 4.1, BUN 19, creatinine 0.8, glucose 114, 208. Bilirubin 1.19, AST 74, ALT 61, alkaline phosphatase 75. Urine culture growing out Klebsiella resistant to Bactrim and ampicillin and intermediate to Macrobid. VITALS: T-max 98.6 degrees, pulse 79, respirations 16, blood pressure 106/85, O2 saturation 95% on room air. PHYSICAL EXAMINATION: General: No acute distress. Vitals: As above. HEENT: Normocephalic, atraumatic. Moist mucous membranes. No cervical lymphadenopathy. Cardiovascular: Still irregular rhythm but normal rate at the time of my exam. Stable left upper sternal murmur. Pulmonary: Very faint bibasilar crackles but essentially clear to auscultation. Abdomen: Soft, nontender, nondistended. Bowel sounds positive. Extremities: Peripheral pulses intact. No clubbing or cyanosis. Trace edema low on bilateral legs. Neurologic: Cranial nerves appear grossly intact. No focal deficits identified. Psychiatric: Normal mood and affect. Awake, alert, and oriented x3. Skin: No new rashes or lesions identified. ASSESSMENT AND PLAN: 1. Acute on chronic systolic congestive heart failure. EF 15%. The edema which was fairly impressive and up to his abdomen is markedly improved. Very little edema left. We will back off his Lasix to p.o. once a day and monitor. Cardiology considering catheterization. 2. Atrial fibrillation with rapid ventricular response. Change to metoprolol. Off of diltiazem. Digoxin also added. Rate control much improved today. Continue to monitor. 3. Diabetes, initially thought to be new diagnosis to the patient. After discussion, it sounds like he may have been told about it once before, but never took any medication. A1c 12.7. Occasional moderate elevations, but overall reasonable control on current sliding scale. Monitor. 4. Alcohol abuse. Patient drinks at least 1 but frequently 4-5 beers a day. Mildly elevated LFTs. Negative hepatitis panel. Essentially normal liver ultrasound. May be mild alcoholic hepatitis. No sign of alcohol withdrawal. 5. Hyponatremia, resolved. 6. Hyperkalemia, resolved with repletion. Continue to monitor. 7. Disposition. Patient clinically markedly improved. Cardiology debating further diagnostic testing. Anticipate discharge once Cardiology has performed whatever test they deem appropriate. 8. Urinary tract infection. Patient with urinalysis on admission suggestive of urinary tract infection. Urine culture growing out Klebsiella resistant only to ampicillin and Bactrim, and intermediate to Macrobid. Has been on Rocephin but will transition to Omnicef to complete a 5 day course.
--- NOTE | 2019-02-25 15:41 | CARDIOLOGY PROGRESS NOTE ---
DATE: 02/25/2019 SUBJECTIVE: Mr. Gupta reports he is doing well. He has no heart racing. He has no orthopnea. PHYSICAL EXAMINATION: Vital Signs: Afebrile, heart rate 79, blood pressure 106/85. His I's and O's have been significant negative over the hospitalization, although, his input has poorly recorded. He reports improvement in his edema. Cardiovascular: He sounds to be in an irregularly irregular rhythm, which is consistent with his known atrial fibrillation. He has no lower extremity edema. Warm and well-perfused extremities. Chest: Exam sounds clear bilaterally. He has no increased work of breathing. Abdomen: Soft, nontender. PERTINENT DATA: His white count 6.9, hematocrit is 52, platelet count is 110. His sodium is 139, potassium 4.1, BUN 19, creatinine 0.8. He had a ProBNP of 4244 on the . ASSESSMENT: Mr. Gputa is a 63-year-old gentleman with a history of atrial fibrillation presents with heart failure. PLAN: I would continue him on his current medications, which include digoxin treatment, dose Lovenox, furosemide, losartan, and metoprolol. His blood pressures appear to be reasonably controlled. Dr. Rabago had made mention of possible cardiac catheterization in the near future. For now, we will continue to adjust medications. cc: Yohannes Mendez MD
[2019-02-25] MEDS: THIAMINE 100 MG in NS 50 ML IV SCH (20:42)
[2019-02-26] MEDS: HUMULIN R SUBQ SCH ×4 (06:00→21:38)
[2019-02-26 07:21] LABS: BASO# 0.02 X1000 (0.0-0.2); BASO% 0.3 % (0.0-0.8); EOS# 0.06 X1000 (0.0-0.7); EOS% 0.9 % (0.0-10.0); HEMOGLOBIN 17.4 g/dL (14.0-18.0); IMM GRAN# 0.02 X1000 (0.0-0.04); IMM GRAN% 0.3 % (0.0-0.5); LYMPH# 2.49 X1000 (1.2-3.4); LYMPH% 38.7 % (20.5-51.1); MCH 30.6 PG (27-31); MCHC 33.5 g/dL (33-37); MCV 91.4 FL (81-99); MONO# 0.82 X1000 (0.11-0.59); MONO% 12.7 % (1.7-9.3); MPV 12.2 FL (7.4-10.4); NEUT# 3.03 X1000 (1.4-6.5); NEUT% 47.1 % (42.2-75.2); PLT 118 X1000 (130-400); RBC 5.69 XMIL (4.7-6.1); RDW 13.6 % (11.5-14.5); WBC 6.44 X1000 (4.8-10.8)
[2019-02-26 07:51] LABS: AGAP 12; ALB/GLOB RATIO 0.9; ALKALINE PHOSPHATASE 73 U/L (32-122); BUN 16 mg/dL (8-22); CALCIUM 8.3 mg/dL (8.8-10.2); CHLORIDE 98 mmol/L (98-107); COSMO 278; CREATININE 0.6 mg/dL (0.7-1.2); ESTIMATED GFR > 60; GLUCOSE 92 mg/dL (70-104); GOT 105 U/L (10-34); GPT 74 U/L (10-44); POTASSIUM 4.2 mmol/L (3.5-5.1); SODIUM 139 mmol/L (136-145); TCO2 29 mmol/L (25-35); TOTAL BILIRUBIN 1.23 mg/dL (0.20-1.00); TOTAL PROTEIN 6.5 g/dL (6.3-8.3)
[2019-02-26] MEDS: TOPROL XL PO SCH (09:32)
[2019-02-26] MEDS: COZAAR PO SCH (09:32)
[2019-02-26] MEDS: LASIX PO SCH (09:32)
[2019-02-26] MEDS: OMNICEF PO SCH ×2 (09:32→21:38)
[2019-02-26] MEDS: LANOXIN PO SCH (09:32)
[2019-02-26] MEDS: LOVENOX SUBQ SCH ×2 (09:32→21:38)
[2019-02-26] MEDS: LOTRISONE CREAM TOP SCH ×2 (09:32→21:39)
[2019-02-26] MEDS: KLOR-CON PO SCH ×2 (09:32→21:38)
[2019-02-26] MEDS ORDERED: MAGNESIUM SULFATE 2 GM/S.W.I. 2 GM/50 ML IVPB IV ONE (12:31)
--- NOTE | 2019-02-26 13:16 | CARDIOLOGY PROGRESS NOTE ---
DATE: 02/26/2019 SUBJECTIVE: Mr. Gupta reports he is doing well. He has no complaints. He has no chest pain. He has no orthopnea. He is tolerating medications. OBJECTIVE: Vital signs: The patient is afebrile. The heart rate is 77, blood pressure 132/88. His I's and O's have been negative. General: No acute distress. Cardiovascular: Regular rate and rhythm. He has no murmurs, no S3. He has no lower extremity edema. Chest: Exam is clear to auscultation bilaterally. No increased work of breathing. Abdomen: Soft, nontender. PERTINENT DATA: White count 6.4, hematocrit is 52, his platelet count is 118,000. His sodium is 139, potassium 4.2, BUN is 16, creatinine 0.6, magnesium level is 1.6. ProBNP is 2584, which is down from 4244. ASSESSMENT: Mr. Gupta is a 63-year-old gentleman with atrial fibrillation and congestive heart failure. PLAN: We will continue him on current medications. No med changes today with the exception of repleting his magnesium. Tentative plan for cardiac catheterization on Wednesday. cc: Yohannes Mendez MD
--- NOTE | 2019-02-26 14:23 | PROGRESS NOTE ---
DATE: 02/26/2019 SUBJECTIVE: Mr. Gupta is comfortable. He says he feels like he has lost a lot of fluid, especially in his legs. The plan is to do a left heart catheterization on Wednesday. Today is Wednesday. OBJECTIVE: Vital signs: Temperature is 97.8, pulse 77, respirations 20, blood pressure 132/88. HEENT: Pupils are equal and round. Lungs: Clear in all lung suggs. Cardiovascular: Regular rhythm and rate without murmur or S3. Urine output: 5200 mL. ASSESSMENT AND PLAN: 1. This is a 63-year-old with atrial fibrillation and congestive heart failure. No changes in the medication. Continue to diurese. We are giving him back some magnesium and potassium. Plan is for heart catheterization, I think, maybe tomorrow. 2. Acute on chronic systolic congestive heart failure, ejection fraction 15%. Edema which was fairly impressive when he came in has markedly improved. 3. Atrial fibrillation with rapid ventricular response. He is off the diltiazem, and digoxin was added, and he is on metoprolol. 4. Diabetes mellitus type 2. Continue to follow his sugars. 5. Alcohol abuse. The patient drinks about 4 to 5 beers a day. Negative hepatitis panel. Essentially negative liver ultrasound. 6. Hyponatremia. 7. Hyperkalemia. 8. Disposition. The patient would like to go back to work, so we will see how we do. 9. Urinary tract infection. Urine culture grew out Klebsiella resistant to ampicillin and Bactrim and intermediate to Macrobid. The patient has been on Rocephin. 10. Heart catheterization planned for tomorrow. REVIEW OF ORDERS: The patient on Omnicef 300 mg b.i.d., digoxin 250 mcg daily, Cozaar 25 mg a day, and thiamine 100 mg IV daily. cc: Camden Roach MD
[2019-02-26] MEDS: THIAMINE 100 MG in NS 50 ML IV SCH (21:37)
[2019-02-27] MEDS: HUMULIN R SUBQ SCH ×5 (05:50→21:43)
[2019-02-27 08:06] LABS: AGAP 10; BUN 16 mg/dL (8-22); CALCIUM 8.6 mg/dL (8.8-10.2); CHLORIDE 99 mmol/L (98-107); COSMO 282; CREATININE 0.8 mg/dL (0.7-1.2); ESTIMATED GFR > 60; GLUCOSE 161 mg/dL (70-104); MAGNESIUM 1.7 mg/dL (1.5-2.7); POTASSIUM 4.8 mmol/L (3.5-5.1); SODIUM 139 mmol/L (136-145); TCO2 30 mmol/L (25-35)
[2019-02-27] MEDS: TOPROL XL PO SCH (08:33)
[2019-02-27] MEDS: LANOXIN PO SCH (08:33)
[2019-02-27] MEDS: KLOR-CON PO SCH ×2 (08:33→21:44)
[2019-02-27] MEDS: LOTRISONE CREAM TOP SCH ×2 (08:33→21:44)
[2019-02-27] MEDS: COZAAR PO SCH (08:33)
[2019-02-27] MEDS: LASIX PO SCH (08:33)
[2019-02-27] MEDS: OMNICEF PO SCH ×2 (08:33→21:44)
[2019-02-27] MEDS: LOVENOX SUBQ SCH ×2 (08:33→21:43)
[2019-02-27] MEDS ORDERED: MAGNESIUM SULFATE 2 GM/S.W.I. 2 GM/50 ML IVPB IV ONE (11:36)
--- NOTE | 2019-02-27 12:26 | PROGRESS NOTE ---
DATE: 02/27/2019 SUBJECTIVE: Mr. Gupta has no complaints. Breathing comfortably. No chest pain. OBJECTIVE: Temperature 97.5 degrees, pulse 80, respirations 15, blood pressure 99/70. Pupils are equal and round. Lungs are clear in all lung suggs. Cardiovascular: Regular rhythm and rate without murmur or S3. Abdomen is soft, nondistended. No pedal edema. ASSESSMENT AND PLAN: A 63-year-old with: 1. Atrial fibrillation, congestive heart failure. We gave him some magnesium and some potassium. Plan is for heart catheterization. 2. Acute on chronic systolic congestive heart failure. Ejection fraction estimated at 15%. Edema which was fairly impressive on presentation is markedly improved. 3. Atrial fibrillation with rapid ventricular response. He is on diltiazem and digoxin as well as metoprolol. 4. Diabetes mellitus, type 2. Continue sugars. 5. Alcohol abuse. 6. Hyponatremia. 7. Hyperkalemia. 8. Urinary tract infection. Urine grew out Klebsiella, treated with Rocephin. ORDERS: I do not see any changes. REVIEW OF HIS LABORATORY DATA: Unremarkable. cc: Camden Roach MD
--- NOTE | 2019-02-27 12:57 | CARDIOLOGY PROGRESS NOTE ---
DATE: 02/27/2019 SUBJECTIVE: Mr. Gupta reports his edema has improved since admission. He is not having any shortness of breath. No chest pain. No orthopnea. PHYSICAL EXAMINATION: Vital signs: Afebrile. Heart rate 80, blood pressure 99/70. His I's and O's continue to be negative. His total output is negative 14 L since admission, although he has very limited intake data recorded. His weight was widely fluctuant but weighed 180 pounds on admission and weighs 163 pounds today. General: No acute distress. Cardiovascular: He sounds to be in an irregularly irregular rhythm consistent with his chronic atrial fibrillation. He has no edema. His JVP appears to be less than 8 cm. Chest: Sounds clear. He has no increased work of breathing. Abdomen: Soft, nontender. PERTINENT DATA: Sodium is 139, potassium 4.8, BUN is 16, creatinine 0.8 which is stable. His magnesium level is 1.7. His ProBNP is 2425. ASSESSMENT: Mr. Gupta is a 63-year-old male with chronic atrial fibrillation and heart failure. PLAN: Tentative plans for cardiac catheterization in the morning. N.p.o. has been ordered as has heart catheterization. I will order preop labs and replete his magnesium today. cc: Yohannes Mendez MD
[2019-02-27] MEDS: THIAMINE 100 MG in NS 50 ML IV SCH (21:43)
[2019-02-28] MEDS: HUMULIN R SUBQ SCH ×3 (06:18→16:50)
[2019-02-28 07:29] LABS: INR 1.08; PROTIME 14.1 Seconds (11.0-16.0)
[2019-02-28 07:30] LABS: BASO# 0.02 X1000 (0.0-0.2); BASO% 0.3 % (0.0-0.8); EOS# 0.12 X1000 (0.0-0.7); HEMATOCRIT 53.6 % (42.0-52.0); IMM GRAN# 0.02 X1000 (0.0-0.04); IMM GRAN% 0.3 % (0.0-0.5); LYMPH# 2.74 X1000 (1.2-3.4); LYMPH% 44.7 % (20.5-51.1); MCH 30.8 PG (27-31); MCHC 33.6 g/dL (33-37); MCV 91.6 FL (81-99); MONO# 0.71 X1000 (0.11-0.59); MONO% 11.6 % (1.7-9.3); NEUT# 2.52 X1000 (1.4-6.5); NEUT% 41.1 % (42.2-75.2); PLT 114 X1000 (130-400); RBC 5.85 XMIL (4.7-6.1); RDW 13.4 % (11.5-14.5); WBC 6.13 X1000 (4.8-10.8)
[2019-02-28 07:37] LABS: AGAP 9; BUN 17 mg/dL (8-22); CHLORIDE 100 mmol/L (98-107); COSMO 275; CREATININE 0.6 mg/dL (0.7-1.2); GLUCOSE 123 mg/dL (70-104); POTASSIUM 4.3 mmol/L (3.5-5.1); SODIUM 136 mmol/L (136-145); TCO2 27 mmol/L (25-35)
[2019-02-28 07:38] LABS: CALCIUM 8.3 mg/dL (8.8-10.2); ESTIMATED GFR > 60; MAGNESIUM 1.7 mg/dL (1.5-2.7)
[2019-02-28] MEDS: TOPROL XL PO SCH (08:12)
[2019-02-28] MEDS: OMNICEF PO SCH (08:12)
[2019-02-28] MEDS: LANOXIN PO SCH (08:12)
[2019-02-28] MEDS: LOTRISONE CREAM TOP SCH (08:12)
[2019-02-28] MEDS: KLOR-CON PO SCH (08:12)
[2019-02-28] MEDS: COZAAR PO SCH (08:12)
[2019-02-28] MEDS: LOVENOX SUBQ SCH (08:13)
[2019-02-28] MEDS: LASIX PO SCH (08:13)
[2019-02-28] MEDS ORDERED: HEPARIN 1000 UNITS/NS 2,000 UNIT/1,000 ML IV.SOLN ONE (08:26)
[2019-02-28] MEDS ORDERED: XYLOCAINE 1% ONE (08:27)
[2019-02-28] MEDS ORDERED: VERSED ONE (09:00)
[2019-02-28] MEDS ORDERED: MORPHINE ONE (09:00)
[2019-02-28] MEDS ORDERED: ANESTHESIA PB SET 88 IN 5742 ONE (09:01)
[2019-02-28] MEDS ORDERED: CLAVE TWINSITE 32 IN 11959 ONE (09:01)
[2019-02-28] MEDS ORDERED: NS 1,000 ML ONE (09:01)
--- NOTE | 2019-02-28 10:37 | EKG Report ---
Test Performed on : 02/28/2019 10:30:35 AM Test Reason : post heart cath Blood Pressure : / mmHG Vent. Rate : 078 BPM Atrial Rate : 375 BPM P-R Int : 000 ms QRS Dur : 112 ms QT Int : 418 ms P-R-T Axes : 000 -70 -85 degrees QTc Int : 476 ms Atrial fibrillation. Left anterior fascicular block Moderate voltage criteria for LVH, may be normal variant Nonspecific T wave abnormality Prolonged QT Abnormal ECG When compared with ECG of 23-FEB-2019 06:55, Incomplete right bundle branch block is no longer present Confirmed by Britton COKER, Jak Colón ([id number]) on 03/01/2019 8:27:42 AM
[2019-02-28 10:58] LABS: HCV BY PCR SEE COMMENTS
[2019-02-28] MEDS ORDERED: NS 1,000 ML IV SCH (11:00)
--- NOTE | 2019-02-28 12:44 | CARDIAC CATH REPORT ---
PROCEDURE NAME: - PROCEDURES PERFORMED: 1. Left heart catheterization. 2. Selective coronary angiography. 3. Left ventriculography. INDICATIONS: 1. Evaluation of severe cardiomyopathy. 2. Entry site right femoral artery. CATHETERS USED: 5-Latvian JL4, JR4, and angled pigtail. TECHNIQUE: After intravenous sedation with morphine and Versed, local anesthesia with lidocaine was applied over right femoral artery. Arterial access was established with placement of a 5- [place] sheath in the right femoral artery using modified Seldinger technique. Selective coronary angiography was performed followed by left heart catheterization, left ventriculography. Upon completion of procedure, arterial sheath was removed from right femoral artery and hemostasis facilitated with manual pressure. The patient tolerated the procedure without apparent complications. FINDINGS: Hemodynamics: Aortic pressure 118/84 with a mean of 98. Left ventricular pressure 123 over EDP of 9. Comments on hemodynamics: There is no significant gradient across the aortic valve demonstrated on pullback of left ventricle. ANGIOGRAPHY: Left ventriculogram: 1. The left ventricular is moderately enlarged with severe global hypokinesis and estimated left ventricular ejection fraction approximately 15%. There is moderate mitral regurgitation. 1. Left main coronary: Left main coronary artery is free of significant coronary stenosis. 2. Left anterior descending coronary: Left anterior descending coronary artery and its branches are free of significant coronary stenosis. 3. Left circumflex coronary: Left circumflex coronary artery is dominant and is free of significant coronary stenosis. 4. Right coronary: The small nondominant right coronary artery is free of significant coronary stenosis. CONCLUSIONS: 1. Severe nonischemic cardiomyopathy. 2. Moderate mitral regurgitation. 3. Left dominant coronary anatomy with no significant coronary obstructive lesions. RECOMMENDATIONS: Continue medical management of patient's severe nonischemic cardiomyopathy. cc: Devon Rabago MD
[2019-02-28 15:24] VITALS: BP 112/85
--- NOTE | 2019-02-28 19:24 | DISCHARGE SUMMARY ---
ADMISSION DATE: 02/22/2019 DISCHARGE DATE: 02/28/2019 DIAGNOSES: 1. Acute on chronic systolic heart failure, biventricular. 2. Severe cardiomyopathy with a left ejection fraction of 15% with moderate mitral regurgitation. 3. Atrial fibrillation with elevated heart rate. 4. Chronic alcohol use and abuse. 5. Diabetes mellitus with a hemoglobin A1c of 12.7. 6. Hyponatremia, resolved. 7. Hyperkalemia, resolved. 8. Klebsiella urinary tract infection currently. The patient will be discharged on Omnicef. 9. Balanitis. CONSULTANTS: 1. Dr. Devon Rabago, Cardiology. 2. Dr. Marvin Escamilla, Urology. HOSPITAL COURSE: Mr. Gupta presented to the emergency room complaining of bilateral lower extremity edema and penile edema. He was found to be in acute biventricular heart failure. He was diuresed and he is -13,965 mL. with some improvement in his lower extremity edema as well as his dyspnea. He underwent a cardiac catheterization on 02/28/2019 and was found to have severe nonischemic cardiomyopathy, and it was felt that alcoholism could be a component to his cardiomyopathy. He did have atrial fibrillation with rapid ventricular response.Rates have since been controlled in the 60s to 90 range. He was evaluated by Urology for his penile edema. It was felt he had balanitis for which clotrimazole and betamethasone cream was ordered. Urine culture revealed Klebsiella pneumoniae. The patient will be discharged on Omnicef. DISCHARGE VITAL SIGNS: Blood pressure is 122/84 with a heart rate of 80, respirations 16, and temperature 98.1 degrees oral with room air saturations 99%. DISCHARGE PHYSICAL EXAMINATION: Cardiovascular: Irregularly irregular rate and rhythm. S1 and S2 appreciated. Pulmonary: Breath sounds are clear with no increased work of breathing noted. Gastrointestinal: Abdomen is soft, nontender, nondistended with bowel sounds in all 4 quadrants. GENITOURINARY: He has no CVA nor suprapubic tenderness. Neurologic: He is alert oriented x3. DISCHARGE MEDICATIONS: 1. Ultra Co Q10 1 p.o. daily. 2. Xarelto 20 mg p.o. daily. 3. Klor-Con 10 mEq p.o. b.i.d. 4. Toprol-XL 50 mg p.o. daily. 5. Cozaar 25 mg p.o. daily. 6. Lasix 40 mg p.o. daily. 7. Lanoxin 0.25 daily. 8. Lotrisone cream apply topical to foreskin b.i.d. 9. Omnicef 300 mg p.o. b.i.d. FOLLOWUP: 1. Dr. Escamilla in 2 weeks. He needs to call to schedule an appointment. 2. Dr. Devon Rabago. Appointment has been scheduled for 03/15/2019 at 9:00 a.m. 3. He has been instructed to call to be seen sooner or return to the emergency room for any syncope, dizziness, chest pain, palpitations, any shortness of breath, cough, fever, chills, any nausea, vomiting, diarrhea, constipation, any black or bloody vomitus or stools, any hematuria, dysuria, frequency, urgency, or for any questions or concerns that he may have. DISPOSITION: He is being discharged home in stable condition with family members. TIME SPENT: This is a greater than 30-minute discharge. Dictated by NATALIA Miranda for Joshua Mar MD Addendum: Patient seen and examined by myself. Agree with NATALIA note. It reflects my assessment and plan. Patient is being discharged in stable condition. Will be seen by Cardiology as already scheduled. cc: NATALIA Miranda MD [facility]
== END 2019-02-28 16:51 | disposition home or self-care (01) | DRG 287 ==
LOC: P.ED 15:47 → ICU 20:17 → SUATTDRO 20:17 → 2N 02-23 09:44
PROVIDERS: ATTEND Internal Medicine